=== PATIENT | female | born 1990 | race Caucasian/White ===

== ENCOUNTER 2017-09-18 12:05 | Emergency (ER) | payer SELFPAY ==
[~2017-09-18] VITALS: Ht 165.1 cm; Wt 65.0 kg
[2017-09-18 12:06] VITALS: BP 125/69; PULSE 72; RESP 16; TEMP 98.4; O2SAT 98
--- NOTE | 2017-09-18 13:29 | PD ---
HPI Chief Complaint: Musculoskeletal Complaint Time Seen by Provider: 13:11 Travel History International Travel<30 days: No Contact w/Intl Traveler<30days: No Traveled to known affect area: No History of Present Illness HPI 27 year-old female presents to the emergency room for evaluation of right foot numbness for the past 4 days. Patient states she was sitting with her legs crossed underneath her for 3 hours without moving. When she got up, her right foot was numb, like it fell asleep, but only on the sole of the foot. She gave a few hours that persisted. Patient states after 4 days, it is very annoying and uncomfortable to walk. She has not done anything for her symptoms. Denies any other symptoms. No back pain, saddle anesthesia, loss of bowel or bladder control, other paresthesias, difficulty breathing, fever, chills, nausea, vomiting, weight loss, night sweats, or IV drug use.. History Past Medical Histgory LMP: 09/17/17 Allergies-Medications (Allergen,Severity, Reaction): Coded Allergies: No Known Allergies (Unverified , 09/18/17) Reported Meds & Prescriptions Reported Meds & Active Scripts Active No Active Prescriptions or Reported Medications Review of Systems Except as stated in HPI: all other systems reviewed are Neg Physical Exam Narrative GENERAL: Well-nourished, well-developed female in no acute distress. Afebrile. Ambulatory. SKIN: Focused skin assessment warm/dry. No erythema or ecchymosis. HEAD: Normocephalic. EYES: No scleral icterus. No injection or drainage. NECK: Supple, trachea midline. No JVD or lymphadenopathy. CARDIOVASCULAR: Regular rate and rhythm without murmurs, gallops, or rubs. RESPIRATORY: Breath sounds equal bilaterally. No accessory muscle use. MUSCULOSKELETAL: No cyanosis, or edema. 2+ dorsalis pedis pulse. Less than 2 second capillary refill distally. 1+ Achilles reflexes are equal bilaterally. No bony tenderness to palpation of the ankle or foot. Full range of motion. BACK: Nontender without obvious deformity. No CVA tenderness. Negative Tinel sign. Decreased sharp sensation to the sole of the foot. Normal dull sensation. Data Data Last Documented VS Vital Signs Date Time Temp Pulse Resp B/P (MAP) Pulse Ox O2 Delivery O2 Flow Rate FiO2 09/18/17 12:06 98.4 72 16 125/69 (44) 98 [facility] Medical Screen Exam Complete: Yes Emergency Medical Condition: No Differential Diagnosis Tarsal tunnel syndrome Narrative Course 27 year-old female presents to the emergency room for evaluation of right foot/ sole numbness and tingling for the past 4 days. Symptoms started after patient was sitting with her legs crossed underneath her for 3 hours without moving. They have persisted. She has no other symptoms or recent back or foot injuries. No back pain or red flag symptoms. No focal neurological deficits. She is ambulatory. No edema, erythema, ecchymosis, or bony tenderness to palpation of the ankle or foot. History and physical exam are consistent with tarsal tunnel syndrome. When I first entered the room, patient was sitting with her legs crossed underneath her on the bed. I suspect she does this often it may contribute to her tarsal tunnel syndrome. She was told to take Motrin, use different orthotics, and follow up with PCP if symptoms persist. She understands and agrees. A medical screening exam was performed: At the time of evaluation the presenting medical condition was determined not to be of an emergent nature. The patient was given the option of receiving additional care, but declined. Patient was given options for additional community resources from which to obtain care. The Patient Has Been advised to seek medical attention for their presenting complaint. The patient has been advised to return to the ER at any time if an emergent condition develops. Primary Impression: Encounter for medical screening examination Scripts No Active Prescriptions or Reported Meds Disposition: 01 DISCHARGE HOME Condition: Stable Alondra Gray Sep 18, 2017 13:29
== END 2017-09-18 13:52 | disposition left against medical advice (07) ==
LOC: NEPK 12:05
DX: R20.0 Anesthesia of skin (principal)
CPT/HCPCS: 99281

== ENCOUNTER 2018-02-06 14:47 | Emergency (ER) | payer SELFPAY ==
[~2018-02-06] VITALS: Ht 165.1 cm; Wt 60.0 kg
[2018-02-06 14:55] VITALS: BP 117/60; PULSE 79; RESP 18; TEMP 97.7; O2SAT 99
[2018-02-06] MEDS ORDERED: AZITHROMYCIN 250 MG TAB PO ONE (18:00)
[2018-02-06] MEDS ORDERED: RESP: ALBUTEROL 2.5 MG/IPRATROPIUM 0.5 MG NEB (SCH) NEB ONE (18:00)
--- NOTE | 2018-02-06 18:01 | PD ---
HPI Chief Complaint: Cold / Flu Symptoms Time Seen by Provider: 17:45 Travel History International Travel<30 days: No Contact w/Intl Traveler<30days: No Traveled to known affect area: No History of Present Illness HPI 27-year-old female presents emergency department with four-day history of upper respiratory flulike symptoms including cough, headache, sore throat, mild wheezing, and generalized body aches. Patient states fevers of 102.5 up until yesterday. She states fever seems to be improved today but she continues to have congestion and wheezing. Patient is a smoker of approximately pack a day. Patient denies nausea vomiting or diarrhea. Decreased appetite is noted. She has no significant chest pain specifically. Patient complains of headache and sinus congestion, as well as postnasal drip. Patient has had wheezing in the past with illness. Patient has no known drug allergies. [facility] Social History Alcohol Use: Yes Tobacco Use: Yes Substance Use: No Allergies-Medications (Allergen,Severity, Reaction): Coded Allergies: No Known Allergies (Unverified Adverse Reaction, Unknown, 02/06/18) Reported Meds & Prescriptions Reported Meds & Active Scripts Active No Active Prescriptions or Reported Medications Review of Systems Except as stated in HPI: all other systems reviewed are Neg General / Constitutional: Positive: Fever, Chills Eyes: No: Visual changes HENT: Positive: Headaches, Sore Throat, Rhinitis, Rhinorrhea, Congestion, Earache, No: Vertigo, Lightheadedness, Nosebleed, Neck Stiffness, Neck Pain, Dental Difficulties Cardiovascular: No: Chest Pain or Discomfort Respiratory: Positive: Cough, Shortness of Breath, Wheezing, No: Sneezing, Orthopnea, Hemoptysis, Stridor, Night Sweats, Pleuritic Pain Gastrointestinal: No: Nausea, Vomiting, Diarrhea, Abdominal Pain Genitourinary: No: Dysuria Musculoskeletal: No: Pain Skin: No Rash Neurologic: No: Weakness Psychiatric: No: Depression Endocrine: No: Polydipsia Hematologic/Lymphatic: No: Easy Bruising Physical Exam Narrative GENERAL: Patient appears mildly ill and talking on phone upon entering the room. She is displeased he had to wait 2 hours to be seen. SKIN: Warm and dry. HEAD: Atraumatic. Normocephalic. EYES: Pupils equal and round. No scleral icterus. No injection or drainage. ENT: No nasal bleeding or discharge. Mucous membranes pink and moist. TMs are dull bilaterally without significant injection. Sinuses are tender with palpation and percussion bilaterally both frontal and maxillary sinuses. Posterior pharynx is mildly erythematous with cobblestoning and postnasal drip noted. Voice is somewhat muffled. NECK: Trachea midline. No JVD. CARDIOVASCULAR: Regular rate and rhythm. RESPIRATORY: No accessory muscle use. Diffuse wheezing throughout to auscultation. Breath sounds equal bilaterally. GASTROINTESTINAL: Abdomen soft, non-tender, nondistended. Hepatic and splenic margins not palpable. MUSCULOSKELETAL: Extremities without clubbing, cyanosis, or edema. No obvious deformities. NEUROLOGICAL: Awake and alert. No obvious cranial nerve deficits. Motor grossly within normal limits. Five out of 5 muscle strength in the arms and legs. Normal speech. PSYCHIATRIC: Appropriate mood and affect; insight and judgment normal. Data Data Last Documented VS Vital Signs Date Time Temp Pulse Resp B/P (MAP) Pulse Ox O2 Delivery O2 Flow Rate FiO2 02/06/18 14:55 97.7 79 18 117/60 (79) 99 Orders Orders Albuterol-Ipratropium Neb (Duoneb Neb) (02/06/18 18:00) Azithromycin (Zithromax) (02/06/18 18:00) MDM Medical Decision Making Medical Screen Exam Complete: Yes Emergency Medical Condition: Yes Differential Diagnosis Influenza. Postnasal drip. Cough. Wheezing. Wheezy bronchitis. Narrative Course Patient is medically stable time exam. Trial of DuoNeb was given Patient given first dose of azithromycin 500 mg. Patient continued on azithromycin 500 mg 3 more days. Patient started on Flonase nasal spray 2 sprays each nostril. Patient given albuterol metered-dose inhaler to be used as needed 2 puffs every 4-6 hours. Work note was given. Patient is to follow-up with symptoms do not improve or worsen in the next week. Diagnosis Primary Impression: Acute wheezy bronchitis Additional Impression: Sinusitis Qualified Codes: J01.40 - Acute pansinusitis, unspecified Referrals: Primary Care Physician Patient Instructions: General Instructions Departure Forms: Work Release Enter return to work date: Feb 08, 2018 Additional Instructions: Patient continued on azithromycin 500 mg 3 more days. Patient started on Flonase nasal spray 2 sprays each nostril. Patient given albuterol metered-dose inhaler to be used as needed 2 puffs every 4-6 hours. Work note was given. Patient is to follow-up with symptoms do not improve or worsen in the next week. Med/Other Pt SpecificInfo: Prescription(s) given Scripts No Active Prescriptions or Reported Meds Disposition: 01 DISCHARGE HOME Condition: Stable Matt Gold Feb 06, 2018 18:01
[2018-02-06] MEDS ORDERED: AZIT500T2 PO (18:14)
[2018-02-06] MEDS ORDERED: FLUT1SPR5 EACH NARE (18:14)
[2018-02-06] MEDS ORDERED: VENTAER INH (18:14)
== END 2018-02-06 18:49 | disposition home or self-care (01) ==
LOC: NEPD 14:47
DX: J20.9 Acute bronchitis, unspecified (principal); J01.40 Acute pansinusitis, unspecified; Z72.0 Tobacco use
CPT/HCPCS: 94664; 99283